=== PATIENT | female | born 1965 | race Caucasian/White ===

== ENCOUNTER 2016-10-13 14:27 | Emergency (ER) | payer OTHER ==
[2016-10-13 16:39] LABS: BASOPHIL 0.1 % (0-2); EOSINOPHIL 0.1 % (0-5); HCT 40.6 % (37.0-47.0); HGB 14.4 g/dl (12.5-16.0); LYMPHOCYTE 15.1 % (15-48); MCH 32.3 pg (25.0-31.0); MCHC 35.5 g/dL (32.0-36.0); MONOCYTE 9.5 % (0-12); MPV 11.7 fL (6.0-9.5); NEUTROPHIL 75.2 % (41-80); PLT 212 K/uL (150-400); RBC 4.46 M/uL (4.20-5.40); RDW 12.3 % (11.5-14.0)
[2016-10-13 16:56] LABS: ALBUMIN 4.3 g/dL (3.5-5.0); BILIRUBIN - TOTAL 0.7 mg/dL (0.1-1.0); CREATININE 0.7 mg/dL (0.5-1.0); GLOBULIN (CALCULATION) 3.4 g/dL (2.2-4.2); POTASSIUM 3.7 mmol/L (3.5-5.1); TOTAL PROTEIN 7.7 g/dL (6.4-8.3)
[2016-11-25] MEDS ORDERED: LEVAQUIN500 MG PO (14:46)
[2016-11-25] MEDS ORDERED: FLAGYL500 MG PO (14:47)
[2016-11-25] MEDS ORDERED: SINGULAIR10 MG PO (14:47)
[2016-11-25] MEDS ORDERED: DULERA 200 MCG8.8 GM INH (14:48)
== END 2016-10-13 20:44 | disposition home or self-care (01) ==
LOC: FER 14:27
PROVIDERS: Emergency Medicine
DX: K57.32 Diverticulitis of large intestine without perforation or abscess without bleeding (principal)
CPT/HCPCS: 36415; 80053; 82150; 83690; 85025; J1885; J2405; Q9967

== ENCOUNTER 2021-08-27 06:22 | Day surgery (SDC) | payer OTHER ==
[~2021-08-27] VITALS: Ht 173 cm; Wt 72.0 kg
[~2021-08-27 06:22] MED LIST: ACETAMINOPHEN500 M1 PO; ALPRAZOLAM 0.50.5 MG PO; DICYCLOMINE HCL20 MG PO; DULERA 200 MCG8.8 GM INH; FLAGYL500 MG PO; FLONASE ALLER15.8 ML; KEFLEX250 MG PO; LEVAQUIN500 MG PO; MONTELUKAST SOD10 MG PO; NORCO 5-325 TA1 EACH PO; SINGULAIR10 MG PO; TAGAMET HB200 MG PO
[2021-08-27] MEDS ORDERED: NITROFURANTOIN100 M1 PO (06:51)
[2021-08-28 05:50] LABS: BASOPHIL 0.1 % (0-2); EOSINOPHIL 0.1 % (0-5); HCT 27.1 % (37.0-47.0); HGB 9.1 g/dl (12.5-16.0); LYMPHOCYTE 15.9 % (15-48); MCH 31.7 pg (25.0-31.0); MCHC 33.6 g/dL (32.0-36.0); MCV 94.4 fL (78.0-100.0); MONOCYTE 8.9 % (0-12); NEUTROPHIL 74.4 % (41-80); NRBC 0; PLT 142 K/uL (150-400); RBC 2.87 M/uL (4.20-5.40); RDW 12.7 % (11.5-14.0); WBC 13.2 K/uL (4.0-10.5)
[2021-08-28 06:09] LABS: CREATININE 0.5 mg/dL (0.51-0.95); POTASSIUM 4.1 mmol/L (3.5-5.1)
[2021-08-28] MEDS ORDERED: OXYCODONE-ACET1 EAC1 PO (08:51)
[2021-08-28] MEDS ORDERED: XARELTO10 MG PO ×2 (08:51→10:32)
[2021-08-28] MEDS ORDERED: FEOSOL325 MG PO (08:51)
[2021-08-28] MEDS ORDERED: ASPIRIN325 MG PO (10:10)
--- NOTE | 2021-08-28 17:07 | NUR ---
PER THE PHARMACIST PT [facility] REQUIRES A PREAUTH PT IS ON XANX. SUMBMITTED REQUEST THROUGH [facility]. THE AUTH IS STILL PENDING. TC TO [employer]. WAS TOLD BY ISSA THAT EVERYTHING IS COMPLETE JUST WAIITING ON THE AUTH. 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 ADVISED PT THAT THE MEDICATION SEQUEIRA DIGGS IS $34.32. PT DECLINES TO PAY FOR THE MEDICATION. PER NURSE SARA, PAIN MEDS HAVE BEEN GIVEN.
== END 2021-08-28 17:40 | disposition home health service (06) ==
LOC: FAS 06:22 → FOR 08:30 → FMS 09:18 → FOR 10:00 → FAS 08-28 17:40
PROVIDERS: Nurse Practitioner Adult Health
DX: M16.12 Unilateral primary osteoarthritis, left hip (principal); M21.152 Varus deformity, not elsewhere classified, left hip; M25.852 Other specified joint disorders, left hip; F41.9 Anxiety disorder, unspecified; I95.81 Postprocedural hypotension; K21.9 Gastro-esophageal reflux disease without esophagitis; Z90.710 Acquired absence of both cervix and uterus; Z90.49 Acquired absence of other specified parts of digestive tract; Z91.013 Allergy to seafood; Z88.2 Allergy status to sulfonamides; Z91.018 Allergy to other foods
CPT/HCPCS: 36415; 73501; 76000; 80048; 85025; 86850; 86900; 86901; 94010; 94762; 97110; 97162; 97165; 97530-GP; C1713; C1776; J0171; J0697; J1100; J1170; J1885; J2250; J2270; J2405; J2704; J2795; J3010; J7040; J7050; J7120

== ENCOUNTER 2021-09-12 15:13 | Emergency (ER) | payer OTHER ==
[~2021-09-12 15:13] MED LIST changes: +ASPIRIN325 MG PO; +FEOSOL325 MG PO; +NITROFURANTOIN100 M1 PO; +OXYCODONE-ACET1 EAC1 PO; +XARELTO10 MG PO
[2021-09-12 17:24] LABS: BASOPHIL 0.4 % (0-2); HCT 37.3 % (37.0-47.0); HGB 11.8 g/dl (12.5-16.0); MCH 30.5 pg (25.0-31.0); MCHC 31.6 g/dL (32.0-36.0); MCV 96.4 fL (78.0-100.0); MONOCYTE 9.1 % (0-12); NEUTROPHIL 50.1 % (41-80); NRBC 0; PLT 389 K/uL (150-400); RBC 3.87 M/uL (4.20-5.40); RDW 13.4 % (11.5-14.0); WBC 6.7 K/uL (4.0-10.5)
[2021-09-12 17:29] LABS: INR 1.1 (0.9-1.2); PROTHROMBIN TIME 13.6 SECONDS (11.8-13.4)
[2021-09-12 17:30] LABS: PTT 29.9 SECONDS (24.4-34.7)
[2021-09-12 17:31] LABS: D-DIMER 2.06 ug/mLFEU (0.00-0.41)
[2021-09-12 17:34] LABS: ALBUMIN 3.7 g/dL (3.4-5.0); BILIRUBIN - TOTAL 0.2 mg/dL (0.2-1.0); BUN/CREAT RATIO (CALC) 20.6 RATIO; CREATININE 0.68 mg/dL (0.51-0.95); GLOBULIN (CALCULATION) 4.7 g/dL; POTASSIUM 3.7 mmol/L (3.5-5.1); TOTAL PROTEIN 8.4 g/dL (6.4-8.2)
[2021-09-12 18:09] LABS: BILIRUBIN NEGATIVE (NEGATIVE); BLOOD NEGATIVE Ery/uL (NEGATIVE); CLARITY CLEAR (CLEAR); COLOR YELLOW (YELLOW); GLUCOSE (U) NORMAL (NORMAL); LEUKOCYTES NEGATIVE Leu/uL (NEGATIVE); NITRITE NEGATIVE (NEGATIVE); PROTEIN NEGATIVE (NEGATIVE); SPECIFIC GRAVITY >=1.030 (1.001-1.030); UROBILINOGEN 0.2 mg/dL (0.2-1.0)
== END 2021-09-12 20:40 | disposition home or self-care (01) ==
LOC: FER 15:13
PROVIDERS: Physician Assistant
DX: R42 Dizziness and giddiness (principal); R00.2 Palpitations; Z87.891 Personal history of nicotine dependence; Z88.2 Allergy status to sulfonamides; Z28.310 Unvaccinated for COVID-19
CPT/HCPCS: 36415; 70450; 71275; 80053; 81003; 83880; 84484; 85025; 85379; 85610; 85730; 93005; Q9967

== ENCOUNTER 2021-11-26 05:34 | Day surgery (SDC) | payer OTHER ==
[~2021-11-26] VITALS: Ht 173 cm; Wt 72.0 kg
[2021-11-26] MEDS ORDERED: VENTOLIN HFA IN18 GM INH (05:56)
[2021-11-26 06:01] LABS: BILIRUBIN NEGATIVE (NEGATIVE); BLOOD NEGATIVE Ery/uL (NEGATIVE); CLARITY CLEAR (CLEAR); COLOR YELLOW (YELLOW); GLUCOSE (U) NORMAL (NORMAL); LEUKOCYTES 2+ Leu/uL (NEGATIVE); NITRITE NEGATIVE (NEGATIVE); PROTEIN NEGATIVE (NEGATIVE); SPECIFIC GRAVITY >=1.030 (1.001-1.030); UROBILINOGEN 0.2 mg/dL (0.2-1.0)
[2021-11-26 06:11] LABS: BACTERIA 2+; MUCOUS MODERATE; SQUAMOUS EPITHELIAL CELLS 20-50
[2021-11-27 06:15] LABS: BASOPHIL 0 % (0-2); EOSINOPHIL 0.1 % (0-5); HCT 27.9 % (37.0-47.0); HGB 9.3 g/dl (12.5-16.0); LYMPHOCYTE 18.8 % (15-48); MCH 31.1 pg (25.0-31.0); MCHC 33.3 g/dL (32.0-36.0); MCV 93.3 fL (78.0-100.0); MPV 12.5 fL (6.0-9.5); NEUTROPHIL 70.7 % (41-80); NRBC 0; PLT 151 K/uL (150-400); RBC 2.99 M/uL (4.20-5.40); RDW 12.4 % (11.5-14.0); WBC 11.2 K/uL (4.0-10.5)
[2021-11-27 06:36] LABS: BUN/CREAT RATIO (CALC) 21.9 RATIO; CREATININE 0.64 mg/dL (0.51-0.95); POTASSIUM 4.3 mmol/L (3.5-5.1)
[2021-11-27] MEDS ORDERED: FEOSOL325 MG PO (09:23)
[2021-11-27] MEDS ORDERED: ASPIRIN325 MG PO (09:23)
[2021-11-27] MEDS ORDERED: OXYCODONE-ACET1 EAC1 PO (09:23)
== END 2021-11-27 13:55 | disposition home or self-care (01) ==
LOC: FAS 05:34 → FMS 09:18 → FOR 11:30 → FAS 11:30 → FMS 11-27 01:07 → FAS 11-27 13:55
PROVIDERS: Legal Medicine; Nurse Practitioner Adult Health
DX: M16.11 Unilateral primary osteoarthritis, right hip (principal); K21.9 Gastro-esophageal reflux disease without esophagitis; E03.9 Hypothyroidism, unspecified; F41.9 Anxiety disorder, unspecified; Z88.2 Allergy status to sulfonamides; Z91.013 Allergy to seafood; Z91.018 Allergy to other foods
CPT/HCPCS: 36415; 73501; 80048; 81001; 85025; 86850; 86900; 86901; 94010; 97162; 97166; 97530-GP; 97535; C1776; J0171; J0697; J1170; J1885; J2250; J2270; J2405; J2704; J2795; J3010; J7120